=== PATIENT | female | born 1940 | race Caucasian/White ===

== ENCOUNTER 2019-01-15 17:22 | Emergency (ER) | payer MEDICARE ==
[~2019-01-15 17:22] MED LIST: AEC81 PO; MULT-1203 PO; MULT1TAB70 PO; TYLENOL ARTHRITIS PO
== END 2019-01-15 18:48 | disposition home or self-care (01) ==
LOC: EDH 17:22
DX: S00.03XA Contusion of scalp, initial encounter (principal); Z88.5 Allergy status to narcotic agent; Z88.6 Allergy status to analgesic agent; Z88.0 Allergy status to penicillin; Z79.82 Long term (current) use of aspirin; W01.198A Fall on same level from slipping, tripping and stumbling with subsequent striking against other object, initial encounter; Y93.01 Activity, walking, marching and hiking; Y92.480 Sidewalk as the place of occurrence of the external cause; Y99.8 Other external cause status
CPT/HCPCS: 70450